=== PATIENT | male | born 1950 | race Caucasian/White ===

== ENCOUNTER 2020-02-04 22:34 | Emergency (ER) | payer MEDICARE, SELFPAY ==
[2020-02-04] VITALS (7 sets, daily range): BP systolic 156–197; BP diastolic 73–89; PULSE 77–83; RESP 14–18; TEMP 35.9; O2SAT 96–98
--- NOTE | 2020-02-04 23:07 | ECG_ITS ---
Measurements Intervals [place] Rate: 78 P: 12 DC: 186 QRS: 57 QRSD: 93 T: 61 QT: 392 QTc: 448 Interpretive Statements SINUS RHYTHM BASELINE ARTIFACT- I, III, AVL NORMAL ECG Electronically Signed On 02-05-2020 7:27:00 [employer]IE MACHINE OPERATOR by Aman Barry D.O.
--- NOTE | 2020-02-04 23:08 | ED.DIZZY ---
HPI - Dizziness General Chief Complaint: Dizziness Stated Complaint: nausea, dry heaving, dizziness Time Seen by Provider: 02/04/20 22:54 History of Present Illness HPI Narrative: Sudden onset of dizziness and disorientation around 2100. Made worse by movement. Associated with nausea and dry heaves. He has never had this before. No otalgia, tinnitus, fever, weakness, light headedness. Related Data Home Medications Medication Instructions Recorded Confirmed duloxetine mg PO 02/04/20 gabapentin 02/04/20 Allergies Allergy/AdvReac Type Severity Reaction Status Date / Time tramadol Allergy Unknown Agitation Verified 02/04/20 22:42 Review of Systems Review of Systems: All systems reviewed & are unremarkable except as noted in HPI and below Constitutional: Constitutional: Denies chills and Denies fever(s) Eyes: Eyes: Denies change in vision ENT: Reports vertigo and Denies sore throat Cardiovascular: Cardiovascular: Denies chest pain Respiratory: Respiratory: Denies dyspnea Gastrointestinal: Gastrointestinal: Reports nausea Genitourinary: Genitourinary: Denies dysuria Musculoskeletal: Musculoskeletal: Denies back pain Neurologic: Reports vertigo, Reports headache(s), Denies numbness and Denies weakness [facility] Past Medical History Medical History Essential (primary) hypertension Fatty liver Paroxysmal atrial fibrillation Family History Family History Father Family history of coronary artery disease Social History Social History Smoking status: Former smoker Smoking end date: 03/13/71 Alcohol intake: never Gender identity (if verbalized by the patient): Male Sexual Orientation (if Verbalized by the Patient): Straight or Heterosexual Exam Const: General: no acute distress and alert Orientation/consciousness: patient oriented x3 HENMT: Ears: TM's normal bilaterally and EAC's normal Face and sinus: normal facial exam Eyes: Pupils: Equal, round and reactive pupils present Resp: Effort & Inspection: normal respiratory effort Auscultation: clear to auscultation bilaterally Cardio: Rate: regular rate Rhythm: regular rhythm GI: GI Palp: Yes Soft to palpation and No Tenderness to palpation present (GI) Skin: General skin exam: normal color Neuro: General: patient oriented x3, moves all extremities, no focal motor deficits and CN's II-XI intact bilaterally Cranial nerves: Yes Nystagmus present horizontal Speech: normal speech Extrem: General: normal to inspection Course Vital Signs Vital signs: Vital Signs Temperature 35.9 C L 02/04/20 22:40 Pulse Rate 83 02/04/20 22:40 Respiratory Rate 18 02/04/20 22:40 Blood Pressure 197/88 H 02/04/20 22:40 Pulse Oximetry 98 02/04/20 22:40 Temperature 35.9 C L 02/04/20 22:40 Pulse Rate 75 02/05/20 01:26 Respiratory Rate 16 02/05/20 01:26 Blood Pressure 161/66 H 02/05/20 01:26 Pulse Oximetry 97 02/05/20 01:26 MDM - Dizziness MDM Narrative Medical decision making narrative: Feeling better and ambulating with stable gait after medications. Differential Diagnosis Differential diagnosis: Likely benign paroxysmal positional vertigo, cerebrovascular accident and acute vestibular neuronitis Medical Records Attestation: I reviewed the patient's medical records. Lab Data Attestation: I reviewed the patient's lab results. Result diagrams: 02/04/20 23:11 02/04/20 23:11 Labs: Lab Results 02/04/20 02/04/20 Range/Units 23:11 23:11 WBC 8.7 (4.5-10.0) K/mm3 RBC 4.71 (4.6-6.20) M/mm3 Hgb 14.6 (14.0-18.0) g/dL Hct 43.4 (42.0-52.0) % MCV 92.1 (80-100) fl MCH 31.0 (26-34) pg MCHC 33.6 (32-36) g/dl RDW 12.8 (11.5-14.5) % Plt Count 238 (150-375) k/mm3 MPV 10.4 (7.4-10.4) fl I
[2020-02-04 23:18] LABS: Basophils Percent Auto 0.3 % (0.2-1.2); Eosinophils Absolute Auto 0.1 K/mm3 (0-0.3); Eosinophils Percent Auto 0.7 % (0-4.4); Hematocrit 43.4 % (42.0-52.0); Hemoglobin 14.6 g/dL (14.0-18.0); Immature Granulocyte Absolute 0.02 K/mm3 (0.00-0.031); Immature Granulocyte Percent A 0.2 % (0-0.5); Lymphocytes Absolute Auto 1.22 K/mm3 (0.9-3.2); Lymphocytes Percent Auto 14.1 % (18.3-44.2); Mean Corpuscular HGB Conc 33.6 g/dl (32-36); Mean Corpuscular Volume 92.1 fl (80-100); Mean Platelet Volume 10.4 fl (7.4-10.4); Monocytes Absolute Auto 1.2 K/mm3 (0.1-0.6); Monocytes Percent Auto 13.3 % (2.6-8.5); Neutrophils Absolute Auto 6.2 K/mm3 (1.3-6.7); Neutrophils Percent Auto 71.4 % (45.5-73.1); Platelet Count Result 238 k/mm3 (150-375); Red Blood Count 4.71 M/mm3 (4.6-6.20); Red Cell Distribution Width 12.8 % (11.5-14.5); White Blood Count 8.7 K/mm3 (4.5-10.0)
[2020-02-04 23:31] LABS: Anion Gap 11 mmol/L (8-16); Blood Urea Nitrogen 14 mg/dL (9-20); Calcium 9.5 mg/dL (8.4-10.2); Carbon Dioxide 26 mmol/L (22-30); Chloride 100 mmol/L (98-107); Estimated CRCL calculation 105 ml/min; Estimated Glomerular Filt Rate > 60; Glucose 163 mg/dL (75-110); Potassium 4.1 mmol/L (3.4-5.0); Sodium 137 mmol/L (137-145)
[2020-02-04] MEDS: SODIUM CHLORIDE 0.9% IV 1,000 ML 999 ML IV CONT (23:39)
[2020-02-04] MEDS: diazePAM INJ (*CRX) 10 MG/2 ML SYRINGE 2.5 MG IV PUSH (23:40)
--- NOTE | 2020-02-05 00:43 | PC.NURSE ---
pt was able to ambulate well
[2020-02-05 01:26] VITALS: BP 161/66; PULSE 75; RESP 16; O2SAT 97
--- NOTE | 2020-02-13 21:40 | PC.NURSE ---
NS infused on 02/05/2020 at 0040.
== END 2020-02-05 01:29 | disposition home or self-care (01) ==
PROVIDERS: Emergency Provider Emergency Medicine; PCP Family Medicine
DX: R42 Dizziness and giddiness (principal); I10 Essential (primary) hypertension; I48.0 Paroxysmal atrial fibrillation; Z87.891 Personal history of nicotine dependence
CPT/HCPCS: 36415; 80048; 85025; 93005; 96361; 96374; 99284; J3360; J7030

== ENCOUNTER → 2020-08-18 10:20 | Outpatient (CLI) | payer OTHER, SELFPAY ==
--- NOTE | ~2020-08-18 | XR_ITS ---
EXAMINATION: XR ribs RT 2V w CXR 2V DATE: 08/18/2020 10:49 INDICATION: Pleurodynia TECHNIQUE: PA and lateral views of the chest and 3 views of the right ribs were obtained. COMPARISON: Chest radiograph dated 12/10/2011 FINDINGS: Azygos lobe and fissure at the right upper lung zone. No focal airspace opacities, pulmonary edema, p leural effusion or pneumothorax. Spinal stimulator projecting over the right abdomen with leads proje cting over the central canal of macro-the upper lumbar and lower thoracic spine with distal tip at th e level of T8. IMPRESSION: 1. No rib fracture or acute cardiopulmonary disease. Reviewed, dictated and finalized at location A.
--- NOTE | ~2020-08-18 | XR_ITS ---
EXAMINATION: XR hand RT 2V DATE: 08/18/2020 10:49 INDICATION: Right hand pain at the fourth metacarpal post fall TECHNIQUE: Posteroanterior and lateral views of the right hand were obtained. COMPARISON: None. FINDINGS: Bone alignment is normal. No fracture. Mild polyarticular osteoarthritis at the first carpometacarpal , first metacarpophalangeal, first interphalangeal joints and fifth distal interphalangeal joints. So ft tissues are unremarkable. IMPRESSION: 1. 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 No acute osseous abnormality. Reviewed, dictated and finalized at location A. IMPRESSION: 1. 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 No acute osseous abnorm ality.
== END ==
PROVIDERS: Visit Provider Family Medicine
DX: M19.041 Primary osteoarthritis, right hand (principal); R07.81 Pleurodynia
CPT/HCPCS: 71046; 71100; 73120